=== PATIENT | female | born 1995 | race Caucasian/White ===

== ENCOUNTER 2020-12-09 10:37 | Outpatient (CLI) | payer OTHER, SELFPAY ==
--- NOTE | ~2020-12-09 | US_ITS ---
EXAMINATION: US pelvic complete DATE: 12/09/2020 11:15 INDICATION: Abnormal uterine bleeding TECHNIQUE: Multiple transabdominal sonographic images of the pelvis were obtained. COMPARISON: None. FINDINGS: The uterus measures 7.8 x 4 x 3.1 cm. The endometrial complex measures 16 mm. The right ova ry measures 3.1 x 2.1 x 1.7 cm. The left ovary measures 2.5 x 1.9 x 2.3 cm. There is normal vascular flow in the ovaries. There is no free fluid in the pelvis. IMPRESSION: 1. No sonographic correlate for the patient's symptoms. Reviewed, dictated and finalized at location [facility]. [facility]
[2020-12-09 11:26] LABS: Hematocrit 34.6 % (37.0-47.0); Hemoglobin 10.9 g/dL (12.0-15.0); Mean Corpuscular HGB Conc 31.5 g/dl (32-36); Mean Corpuscular Volume 85.6 fl (80-100); Mean Platelet Volume 10.2 fl (7.4-10.4); Platelet Count Result 323 k/mm3 (150-375); Red Blood Count 4.04 M/mm3 (4.2-5.4); Red Cell Distribution Width 14.9 % (11.5-14.5)
[2020-12-09 12:29] LABS: Free T4 Free Thyroxine 0.86 ng/mL (0.78-2.19)
[2020-12-14 06:14] LABS: Prolactin 13.7 ng/mL (***)
== END 2020-12-09 10:38 | disposition home or self-care (01) ==
PROVIDERS: PCP Internal Medicine; Visit Provider Obstetrics & Gynecology
DX: N93.9 Abnormal uterine and vaginal bleeding, unspecified (principal)
CPT/HCPCS: 36415; 76856; 84146; 84439; 84443; 85027

== ENCOUNTER 2023-03-05 14:30 | Outpatient (CLI) | payer OTHER, SELFPAY ==
[2023-03-05 19:28] LABS: Basophils Absolute Auto 0.1 K/mm3 (0.0-0.1); Basophils Percent Auto 0.9 % (0.2-1.2); Eosinophils Absolute Auto 0.1 K/mm3 (0-0.3); Eosinophils Percent Auto 0.9 % (0-4.4); Hematocrit 38.8 % (37.0-47.0); Hemoglobin 12.5 g/dL (12.0-15.0); Immature Granulocyte Absolute 0.01 K/mm3 (0.00-0.031); Immature Granulocyte Percent A 0.2 % (0-0.5); Lymphocytes Absolute Auto 2.14 K/mm3 (0.9-3.2); Lymphocytes Percent Auto 40.6 % (18.3-44.2); Mean Corpuscular HGB Conc 32.2 g/dl (32-36); Mean Corpuscular Hemoglobin 28.4 pg (26-34); Mean Corpuscular Volume 88.2 fl (80-100); Mean Platelet Volume 11.2 fl (7.4-10.4); Monocytes Absolute Auto 0.6 K/mm3 (0.1-0.6); Monocytes Percent Auto 10.8 % (2.6-8.5); Neutrophils Absolute Auto 2.5 K/mm3 (1.3-6.7); Neutrophils Percent Auto 46.6 % (45.5-73.1); Platelet Count Result 258 k/mm3 (150-375); Red Cell Distribution Width 12.8 % (11.5-14.5); White Blood Count 5.3 K/mm3 (4.5-10.0)
[2023-03-05 20:42] LABS: Alanine Aminotransferase 25 U/L (6-35); Albumin Level 4.2 g/dL (3.5-5.1); Alkaline Phosphatase 120 U/L (38-126); Anion Gap 7 mmol/L (8-16); Aspartate Amino Transferase 22 U/L (14-36); Bilirubin,Total 0.4 mg/dL (0.2-1.3); Blood Urea Nitrogen 7 mg/dL (7-17); Calcium 8.7 mg/dL (8.4-10.2); Carbon Dioxide 28 mmol/L (22-30); Chloride 100 mmol/L (98-107); Estimated Glomerular Filt Rate > 60; Glucose 85 mg/dL (65-110); Potassium 4.3 mmol/L (3.4-5.0); Sodium 135 mmol/L (137-145)
== END 2023-03-05 14:31 | disposition home or self-care (01) ==
LOC: ANHGOSHLAB 14:31
PROVIDERS: PCP Internal Medicine; Visit Provider Nurse Practitioner
DX: R00.2 Palpitations (principal)
CPT/HCPCS: 36415; 80053; 84443; 85025

== ENCOUNTER 2023-03-15 12:55 | Outpatient (CLI) | payer OTHER, SELFPAY ==
--- NOTE | 2023-03-21 12:38 | WPDHOLTEREM ---
Holter/Event Monitor Holter/Event Monitor Date of procedure: 03/15/23 Holter/Event Procedure: 48 Hr Holter Monitor Indications: Palpitations Conclusion: 1. 48 hour holter monitor on 03/15/23. 2. Predominant rhythm is sinus rhythm. HR range 43-156 bpm; average HR 84 bpm. HR at 156 bpm was at 14:48. 3. There are 2 premature supraventricular complexes. There is 1 episode of atrial tachycardia at 118 bpm lasting 4 beats at 04:23. 4. There is 1 premature ventricular complex. No ventricular tachycardia. 5. No sinoatrial or atrioventricular blocks. No significant pauses greater than 2 seconds. 6. Patient reports symptoms of chest pain and chest pressure/difficulty breathing which demonstrate sinus rhythm, HR range 67-117 bpm.
== END 2023-03-15 12:56 | disposition home or self-care (01) ==
LOC: ANHCARD 12:56
PROVIDERS: PCP Internal Medicine; Visit Provider Nurse Practitioner
DX: R00.2 Palpitations (principal)
CPT/HCPCS: 93225; 93226

== ENCOUNTER 2023-08-03 01:08 | Day surgery (SDC) | payer OTHER, SELFPAY ==
--- NOTE | 2023-07-24 16:13 | SUR.PREOP ---
Report to the Outpatient Waiting Room, entrance under the green pavilion located off [facility], at time 0600 on date 08/03/23. Planned Procedure Time: 0730. Time changes happen often and if your time is changed the preop area will call you the afternoon before. - You and your visitor will be asked to self-screen and do not enter if you have any COVID symptoms. - A mask is optional within the hospital at this time. Patients may have clear liquids (water, carbonated beverages, clear teas, apple juice) until 3 hours prior to surgery with a maximum of 20 ounces. - NO CLEAR LIQUIDS AFTER 0430 - No food from midnight until time of surgery - Infants may have breast milk until 4 hours before surgery, infant formula 6 hours prior to surgery. - Children will be allowed to drink immediately following surgery. If applicable, please bring a bottle or sippy cup to assist with drinking. Juice, water, soda, and popsicles are readily available. For infants on formula, please bring formula the day of surgery. Pacifiers are allowed. Take the following medications with a SIP of water the morning of surgery: N/A DO NOT STOP ANY OF YOUR OTHER PRESCRIPTION MEDICATIONS PRIOR TO SURGERY ?EXCEPT THE FOLLOWING Medications to discontinue per physician N/A Date to take last dose Please no make-up, nail cypriot, hairspray, perfume, deodorant, or body powder the day of surgery. No jewelry (including any body piercings) or valuables the day of surgery, leave them at home. Please take a shower or bath the night before, or the morning of, surgery with an antibacterial soap. Wear comfortable, loose fitting clothing. Children are encouraged to wear pajamas. - Jewelry must be removed prior to entering the operating room. Rings and piercings that are not removed may be cut off. - The hospital will not accept responsibility for valuables. - Please leave all valuables, including medications, at home the day of surgery. If you are going home after surgery, a licensed regional company truck driver must drive you home. - NO public transportation without another adult if you receive anesthesia. - We recommend that an adult stay with you for 24 hours following discharge. - We also recommend that you do not drive, make important decision, drink alcoholic beverages, or take any drugs that were not prescribed by your health care provider for at least 24 hours after your discharge time. For Pediatric surgeries, we recommend two adults accompany the child home. Follow any additional instructions given to you from your surgeon. If you or anyone in your household have experienced Covid symptoms in the past week, please notify your surgeon or the nurse liaison at the phone number below for possible testing. Telephone instructions given to DILIP AGUERO and asked if any additional questions and then verbalized understanding. Patient advised to call surgeon office or pre surgery nurse liaison [phone] if any additional questions.
[2023-07-24 16:52] VITALS: BMI 39.4
[2023-08-03 06:06] VITALS: BP 151/92; PULSE 81; RESP 16; TEMP 36.6; O2SAT 99
[2023-08-03] MEDS: LACTATED RINGERS 1,000 ML 30 ML IV CONT (06:35)
[2023-08-03] MEDS: ACETAMINOPHEN 500 MG TABLET 1000 MG PO (06:36)
--- NOTE | 2023-08-03 07:11 | PM.IMHP ---
H&P: HPI History of Present Illness Date/Time: 08/03/23 07:11 Chief Complaint: Heavy periods Narrative: Patient with long history of menorrhagia not satisfactorily improved with oral contraceptive pills. She does not want to have to take any hormones declines all other options for menorrhagia treatment. She opted for endometrial ablation. No desire for children. Does not need control. She had normal endometrial biopsy. Review of Systems Review of Systems: All systems reviewed & are unremarkable except as noted in HPI and below Cardiovascular: Cardiovascular: Reports no additional cardiovascular complaints, Denies chest pain and Denies dyspnea Respiratory: Respiratory: Reports no additional respiratory complaints and Denies dyspnea Gastrointestinal: Gastrointestinal: Reports abdominal pain, Denies change in bowel habits, Denies diarrhea, Denies nausea and Denies vomiting Genitourinary: Genitourinary: Reports pelvic pain Musculoskeletal: Musculoskeletal: Reports back pain Integumentary/Breasts: Skin/Breast: Reports system reviewed and no additional complaints, except as docu Neurologic: Reports system reviewed and no additional complaints, except as documented [facility] Past Medical History Medical History Anxiety Depression GERD (gastroesophageal reflux disease) Migraines Sleep apnea Surgical History Surgical History History of foot surgery left foot calcium injection 2017 History of foot surgery left foot calcaneal osteotomy 2018 Family History Family History Mother Hypertension Degenerative disc disease Father Hypertension GERD (gastroesophageal reflux disease) Grandparent Diabetes mellitus Hypertension Cerebrovascular accident COPD (chronic obstructive pulmonary disease) Lung cancer Social History Social History Smoking status: Never smoker Alcohol intake: current Substance use: never Lack of Transportation: No Lack of Food: Never True Current Housing: I Have Housing Concerned About Future Housing: No Difficulty Paying Gas/Electric Bills: No Difficulty Paying for Meds: No Currently Unemployed: YES Education: Bachelor's Degree Difficulty w/ Childcare or Family Care: No Occupation/Education: unemployed Gender identity (if verbalized by the patient): Female Sexual Orientation (if Verbalized by the Patient): Lesbian, Hameed, or Homosexual Spiritual care concerns: No Meds Home Medications and Allergies Home Medications Medication Instructions Recorded Confirmed Type clonidine HCl 0.1 mg tablet 0.1 mg PO DAILY 01/25/23 07/24/23 History omeprazole 20 mg capsule,delayed 20 mg PO DAILY 01/25/23 07/24/23 History release norethindrone 1 mg-ethinyl 1 tablet PO DAILY #84 tabs 03/14/23 07/24/23 Rx estradiol 20 mcg (21)-iron 75 mg (7) tablet (Loestrin Fe 12/15 (28-Day)) lisdexamfetamine 20 mg capsule 40 mg PO DAILY 06/15/23 07/24/23 History (Vyvanse) Allergies Allergy/AdvReac Type Severity Reaction Status Date / Time No Known Allergies Allergy Verified 07/24/23 16:52 Vital Signs Vital Signs - 24 hr 08/03/23 06:06 Temperature 97.8 F Pulse Rate 81 Respiratory Rate 16 Blood Pressure 151/92 H Pulse Oximetry 99 Oxygen Delivery Room Air Exam Const: Orientation/consciousness: oriented to person and oriented to place HENMT: Head: normal to inspection Eyes: General: appearance normal, both eyes and all related structures Resp: Effort & Inspection: normal respiratory effort Auscultation: clear to auscultation bilaterally Cardio: Rate: regular rate Rhythm: regular rhythm GI: Inspection: normal to inspection GI Palp: No Rebound tenderness present Neuro: General: oriented to person and oriented t
--- NOTE | 2023-08-03 07:15 | WPDHPUPDATE1 ---
History and Physical Update Update Date/Time: 08/03/23 07:15 History and Physical has been reviewed, including an updated exam of the patient. There are NO changes in the patient's condition. Risks, benefits, and alternatives have been discussed and questions answered. Patient agrees to proceed with procedure.
--- NOTE | 2023-08-03 07:17 | WPDANESEPPF ---
Anes - Initial Pre Proc Eval Procedure: Operation Date: 08/03/23 07:30 Proposed Procedures p Hysteroscopy Dilation and Curettage with Amanda Endometrial Ablation - Piter Marrufo MD Date/Time: 08/03/23 07:17 Surgeon: Piter Marrufo MD Pre Op Diagnosis: menorrhagia Patient Data Age: 28 Gender: F Height: 1.6 m Weight: 101.2 kg Last Vital Signs Temp 36.6 C 08/03/23 06:06 Pulse 81 08/03/23 06:06 Resp 16 08/03/23 06:06 BP 151/92 H 08/03/23 06:06 Pulse Ox 99 08/03/23 06:06 O2 Del Method Room Air 08/03/23 06:06 Allergies Allergy/AdvReac Type Severity Reaction Status Date / Time No Known Allergies Allergy Verified 07/24/23 16:52 Home Medications Medication Instructions Recorded Confirmed Type clonidine HCl 0.1 mg tablet 0.1 mg PO DAILY 01/25/23 07/24/23 History omeprazole 20 mg capsule,delayed 20 mg PO DAILY 01/25/23 07/24/23 History release norethindrone 1 mg-ethinyl 1 tablet PO DAILY #84 tabs 03/14/23 07/24/23 Rx estradiol 20 mcg (21)-iron 75 mg (7) tablet (Loestrin Fe / (28-Day)) lisdexamfetamine 20 mg capsule 40 mg PO DAILY 06/15/23 07/24/23 History (Vyvanse) Patient hx anesthesia problems: none Family hx anesthesia problems: none Results Review: All pre-operative results and documents have been reviewed as part of the pre-operative evaluation. [facility] Past Medical History Medical History Anxiety Depression GERD (gastroesophageal reflux disease) Migraines Sleep apnea Surgical History Surgical History History of foot surgery left foot calcium injection 2017 History of foot surgery left foot calcaneal osteotomy 2018 Family History Family History Mother Hypertension Degenerative disc disease Father Hypertension GERD (gastroesophageal reflux disease) Grandparent Diabetes mellitus Hypertension Cerebrovascular accident COPD (chronic obstructive pulmonary disease) Lung cancer Social History Social History Smoking status: Never smoker Alcohol intake: current Substance use: never Lack of Transportation: No Lack of Food: Never True Current Housing: I Have Housing Concerned About Future Housing: No Difficulty Paying Gas/Electric Bills: No Difficulty Paying for Meds: No Currently Unemployed: YES Education: Bachelor's Degree Difficulty w/ Childcare or Family Care: No Occupation/Education: unemployed Gender identity (if verbalized by the patient): Female Sexual Orientation (if Verbalized by the Patient): Lesbian, Hameed, or Homosexual Spiritual care concerns: No Anes - Eval Final PreProcedure Day of Procedure 08/03/23 07:17 Patient weight: morbidly obese Heart: regular rate and rhythm Lungs: clear to auscultation Airway: Mallampati scale class II Neurological: alert and oriented Last oral intake: >/= 8 hours ASA classification: III Emergent: no Anesthetic plan: proceed Anesthesia type and monitoring: general GIVS and standard monitoring Results Review: All pre-operative results and documents have been reviewed as part of the pre-operative evaluation. Informed Consent: The patient's anesthetic plan and its attendant risks and benefits were discussed with the patient/family/POA. Questions were solicited and answers provided to the satisfaction of the patient/family/POA.
[2023-08-03 08:02] VITALS: BP 111/46; PULSE 75; RESP 16; O2SAT 100
--- NOTE | 2023-08-03 08:03 | W.PM.PROC2 ---
Procedure Note - Detailed Date of Procedure 08/03/23 Pre-op Diagnosis menorrhagia Post-op Diagnosis Same Procedure Performed Diagnostic hysteroscopy. Attempted Amanda endometrial ablation. Surgeon Piter Marrufo MD Anesthesia MAC and Local Indications Menorrhagia Findings Uterus sound to 7 cervical length 3, uterine length 4 cm, uterine cavity normal, the cavity did appear narrow, the Amanda arms would not deploy, small indention in the fundus, no full perforation. Description of Procedure After informed consent was obtained patient was taken to the operating room and adequate IV sedation was administered. She was placed in low lithotomy position and prepped and draped in sterile fashion. Attention was turned to the vagina speculum inserted. Single-tooth tenaculum placed on anterior lip of the cervix 10 cc of 1% lidocaine was injected at the cervical vaginal interface at the 258 and 10 position. The uterus was sounded to 7 cm. The of either hysteroscope was inserted using hydrodilation the hysteroscope was inserted into the uterine cavity. There were no abnormalities noted with the cavity. The cavity did appear somewhat narrow. The hysteroscope was removed. The cervix was dilated to an 8 Babcock dilator. The Amanda instrument was inserted into the cavity. When the arms were deployed it would not go into the green this was attempted twice still it would not go into the green. Therefore could not proceed with the ablation. The hysteroscope was then reinserted and the cavity was assessed there is noted to be an area of superficial indention of the myometrium near the fundal area which looked like from the arms of the Amanda. It did not perforate through the uterus. A curettage was then performed minimal tissue obtained. Fluid discrepancy 40 cc. The speculum was removed hemostasis was noted at the tenaculum site and at the cervix. Sponge count correct. Patient tolerated procedure well. Estimated Blood Loss 5 Drains No Packing No Pathology Yes (Endometrial curetting) Complications No immediate complications Condition Stable Disposition Same day [facility] Billing Surgery - Charge Forward: Surgery Billing
[2023-08-03] MEDS: KETOROLAC 30 MG/ML VIAL (*BKC) IV PUSH (08:11)
[2023-08-03] MEDS: fentaNYL CITRATE INJ (*CRX) 100 MCG/2 ML VIAL 25 MCG IV PUSH (08:21)
[2023-08-03 08:30] VITALS: BP 143/83; PULSE 66; RESP 20
[2023-08-03 09:00] VITALS: BP 143/79; PULSE 66; RESP 20
[2023-08-03] MEDS: oxyCODONE HCL (*CRX) 5 MG TAB IR PO (09:01)
--- NOTE | 2023-08-03 09:01 | SUR.PHASEII ---
0900 - dr. bynum in room talking with pt and pt's family
[2023-08-03 09:20] VITALS: BP 140/80; PULSE 60; RESP 20
== END 2023-08-03 09:20 | disposition home or self-care (01) ==
PROVIDERS: PCP Internal Medicine; Visit Provider Obstetrics & Gynecology
PROC: 0U5B8ZZ Destruction of Endometrium, Via Natural or Artificial Opening Endoscopic (ICD-10-PCS; CPT 58563; principal; 2023-08-03 07:30)
DX: N92.1 Excessive and frequent menstruation with irregular cycle (principal); K21.9 Gastro-esophageal reflux disease without esophagitis; F32.A Depression, unspecified; F41.9 Anxiety disorder, unspecified; G47.30 Sleep apnea, unspecified; E66.01 Morbid (severe) obesity due to excess calories; Z68.39 Body mass index [BMI] 39.0-39.9, adult
CPT/HCPCS: 58563; 88305; A9270; J1885; J2250; J2704; J3010; J7120

== ENCOUNTER 2023-09-10 14:18 | Outpatient (CLI) | payer OTHER, SELFPAY | END 2023-09-10 14:19 | disposition home or self-care (01) | LOC: ANHSURGERY 14:21 | PROVIDERS: PCP Internal Medicine; Visit Provider Obstetrics & Gynecology | DX: Z01.818 Encounter for other preprocedural examination (principal); N92.0 Excessive and frequent menstruation with regular cycle | CPT/HCPCS: 36415; 86850; 86900; 86901 ==

== ENCOUNTER 2023-09-14 00:20 | Day surgery (SDC) | payer OTHER, SELFPAY ==
[2023-09-03 10:44] VITALS: BMI 38.0
--- NOTE | 2023-09-03 10:50 | SUR.PREOP ---
Report to the Outpatient Waiting Room, entrance under the green pavilion located off [facility], at time _0600_ on date 09/14/23. Planned Procedure Time: _0730_. Time changes happen often and if your time is changed the preop area will call you the afternoon before. - You and your visitor will be asked to self-screen and do not enter if you have any COVID symptoms. - A mask is optional within the hospital at this time. Patients may have clear liquids (water, carbonated beverages, clear teas, apple juice) until 3 hours prior to surgery with a maximum of 20 ounces. - No food from midnight until time of surgery BEFORE 0430AM - Infants may have breast milk until 4 hours before surgery, infant formula 6 hours prior to surgery. - Children will be allowed to drink immediately following surgery. If applicable, please bring a bottle or sippy cup to assist with drinking. Juice, water, soda, and popsicles are readily available. For infants on formula, please bring formula the day of surgery. Pacifiers are allowed. Take the following medications with a SIP of water the morning of surgery: ___HOLD MORNING MEDS____ DO NOT STOP ANY OF YOUR OTHER PRESCRIPTION MEDICATIONS PRIOR TO SURGERY ?EXCEPT THE FOLLOWING Medications to discontinue per physician ____HOLD MORNING MEDS Date to take last dose Please no make-up, nail croatian, hairspray, perfume, deodorant, or body powder the day of surgery. No jewelry (including any body piercings) or valuables the day of surgery, leave them at home. Please take a shower or bath the night before, or the morning of, surgery with an antibacterial soap. Wear comfortable, loose fitting clothing. Children are encouraged to wear pajamas. - Jewelry must be removed prior to entering the operating room. Rings and piercings that are not removed may be cut off. - The hospital will not accept responsibility for valuables. - Please leave all valuables, including medications, at home the day of surgery. If you are going home after surgery, a licensed patient transportation driver must drive you home. - NO public transportation without another adult if you receive anesthesia. - We recommend that an adult stay with you for 24 hours following discharge. - We also recommend that you do not drive, make important decision, drink alcoholic beverages, or take any drugs that were not prescribed by your health care provider for at least 24 hours after your discharge time. For Pediatric surgeries, we recommend two adults accompany the child home. Follow any additional instructions given to you from your surgeon. If you or anyone in your household have experienced Covid symptoms in the past week, please notify your surgeon or the nurse liaison at the phone number below for possible testing. Telephone instructions given to __PATIENT___and asked if any additional questions and then verbalized understanding. Patient advised to call surgeon office or pre surgery nurse liaison [phone] if any additional questions.
--- NOTE | 2023-09-13 17:10 | PM.IMHP ---
H&P: HPI History of Present Illness Date/Time: 09/13/23 17:10 Chief Complaint: Irregular and heavy periods Narrative: She is a 28 y/o G0 with long history of irregular and heavy periods. She has been tried on hormonal options which has improved symptoms but not resolved satisfactorily. She does not want to use or take any hormonal options to resolve her symptoms. She had requested hysterectomy in the past but she was recommended to try endometrial ablation first. She had normal endometrial tissue. The ablation device would not enable and therefore unable to perform the ablation. She continues to decline other hormonal options for her symptoms and request definitive treatment with hysterectomy. She states she has never wanted to get and knows she would not be able carry a with the hysterectomy, which she satisfied with this. Review of Systems Review of Systems: All systems reviewed & are unremarkable except as noted in HPI and below Cardiovascular: Cardiovascular: Reports no additional cardiovascular complaints, Denies chest pain and Denies dyspnea Respiratory: Respiratory: Reports no additional respiratory complaints and Denies dyspnea Gastrointestinal: Gastrointestinal: Reports abdominal pain, Denies change in bowel habits, Denies diarrhea, Denies nausea and Denies vomiting Genitourinary: Genitourinary: Reports pelvic pain Musculoskeletal: Musculoskeletal: Reports back pain Integumentary/Breasts: Skin/Breast: Reports system reviewed and no additional complaints, except as docu Neurologic: Reports system reviewed and no additional complaints, except as documented [facility] Past Medical History Medical History Anxiety Depression GERD (gastroesophageal reflux disease) Menometrorrhagia Migraines Sleep apnea Surgical History Surgical History History of foot surgery left foot calcium injection 2017 History of foot surgery left foot calcaneal osteotomy 2018 History of hysteroscopy (~08/03/23) Attempted endometrial ablation. Menometrorrhagia Family History Family History Mother Hypertension Degenerative disc disease Father Hypertension GERD (gastroesophageal reflux disease) Grandparent Diabetes mellitus Hypertension Cerebrovascular accident COPD (chronic obstructive pulmonary disease) Lung cancer Social History Social History Smoking status: Never smoker Alcohol intake: current Substance use: never Lack of Transportation: No Lack of Food: Never True Current Housing: I Have Housing Concerned About Future Housing: No Difficulty Paying Gas/Electric Bills: No Difficulty Paying for Meds: No Currently Unemployed: YES Education: Bachelor's Degree Difficulty w/ Childcare or Family Care: No Living arrangements: with family Occupation/Education: unemployed Gender identity (if verbalized by the patient): Other Sexual Orientation (if Verbalized by the Patient): Lesbian, Hameed, or Homosexual Spiritual care concerns: No Meds Home Medications and Allergies Home Medications Medication Instructions Recorded Confirmed Type clonidine HCl 0.1 mg tablet 0.1 mg PO DAILY 01/25/23 09/03/23 History omeprazole 20 mg capsule,delayed 20 mg PO DAILY 01/25/23 09/03/23 History release norethindrone 1 mg-ethinyl 1 tablet PO DAILY #84 tabs 03/14/23 09/03/23 Rx estradiol 20 mcg (21)-iron 75 mg (7) tablet (Loestrin Fe 12/15 (28-Day)) lisdexamfetamine 20 mg capsule 40 mg PO DAILY 06/15/23 09/03/23 History (Vyvanse) scopolamine base 1 mg over 3 days 1 patch transdermal ONCE #1 ea 08/29/23 09/03/23 Rx transdermal patch Allergies Allergy/AdvReac Type Severity Reaction Status Date / Time No Known Allergies Allergy Verified 08/29/23 09:
[2023-09-14] VITALS (17 sets, daily range): BP systolic 108–149; BP diastolic 65–80; PULSE 43–78; RESP 12–20; TEMP 36.4–36.6; O2SAT 99–100
[2023-09-14] MEDS: LACTATED RINGERS 1,000 ML 30 ML IV CONT ×2 (06:45→09:17)
[2023-09-14] MEDS: ACETAMINOPHEN 500 MG TABLET 1000 MG PO (06:49)
[2023-09-14] MEDS: KETOROLAC 15 MG/ML VIAL (*BKC) IV PUSH (06:49)
--- NOTE | 2023-09-14 06:53 | WPDANESEPPF ---
Anes - Initial Pre Proc Eval Procedure: Operation Date: 09/14/23 07:30 Proposed Procedures p Robotic Laparoscopic Assisted Vaginal Total Hysterectomy with Bilateral Salpingectomy - Piter Marrufo MD Date/Time: 09/14/23 06:53 Surgeon: Piter Marrufo MD Pre Op Diagnosis: menorrhagia Patient Data Age: 28 Gender: F Height: 1.6 m Weight: 97.52 kg Allergies Allergy/AdvReac Type Severity Reaction Status Date / Time No Known Allergies Allergy Verified 08/29/23 09:48 Home Medications Medication Instructions Recorded Confirmed Type clonidine HCl 0.1 mg tablet 0.1 mg PO DAILY 01/25/23 09/03/23 History omeprazole 20 mg capsule,delayed 20 mg PO DAILY 01/25/23 09/03/23 History release norethindrone 1 mg-ethinyl 1 tablet PO DAILY #84 tabs 03/14/23 09/03/23 Rx estradiol 20 mcg (21)-iron 75 mg (7) tablet (Loestrin Fe 12/15 (28-Day)) lisdexamfetamine 20 mg capsule 40 mg PO DAILY 06/15/23 09/03/23 History (Vyvanse) scopolamine base 1 mg over 3 days 1 patch transdermal ONCE #1 ea 08/29/23 09/03/23 Rx transdermal patch Patient hx anesthesia problems: none Family hx anesthesia problems: none Results Review: All pre-operative results and documents have been reviewed as part of the pre-operative evaluation. [facility] Past Medical History Medical History Anxiety Depression GERD (gastroesophageal reflux disease) Menometrorrhagia Migraines Sleep apnea Surgical History Surgical History History of foot surgery left foot calcium injection 2017 History of foot surgery left foot calcaneal osteotomy 2018 History of hysteroscopy (~08/03/23) Attempted endometrial ablation. Menometrorrhagia Family History Family History Mother Hypertension Degenerative disc disease Father Hypertension GERD (gastroesophageal reflux disease) Grandparent Diabetes mellitus Hypertension Cerebrovascular accident COPD (chronic obstructive pulmonary disease) Lung cancer Social History Social History Smoking status: Never smoker Alcohol intake: current Substance use: never Lack of Transportation: No Lack of Food: Never True Current Housing: I Have Housing Concerned About Future Housing: No Difficulty Paying Gas/Electric Bills: No Difficulty Paying for Meds: No Currently Unemployed: YES Education: Bachelor's Degree Difficulty w/ Childcare or Family Care: No Living arrangements: with family Occupation/Education: unemployed Gender identity (if verbalized by the patient): Other Sexual Orientation (if Verbalized by the Patient): Lesbian, Hameed, or Homosexual Spiritual care concerns: No Anes - Eval Final PreProcedure Day of Procedure 09/14/23 06:53 Patient weight: obese Heart: regular rate and rhythm Lungs: clear to auscultation Airway: Mallampati scale class II Neurological: alert and oriented Last oral intake: >/= 8 hours ASA classification: III Emergent: no Anesthetic plan: proceed Anesthesia type and monitoring: general ETT and standard monitoring Results Review: All pre-operative results and documents have been reviewed as part of the pre-operative evaluation. Informed Consent: The patient's anesthetic plan and its attendant risks and benefits were discussed with the patient/family/POA. Questions were solicited and answers provided to the satisfaction of the patient/family/POA.
--- NOTE | 2023-09-14 07:16 | WPDHPUPDATE1 ---
History and Physical Update Update Date/Time: 09/14/23 07:16 History and Physical has been reviewed, including an updated exam of the patient. There are NO changes in the patient's condition. Risks, benefits, and alternatives have been discussed and questions answered. Patient agrees to proceed with procedure.
[2023-09-14] MEDS: ceFAZolin 2 GM/D5W 50 ML 2 GM/50 ML BAG IVPB (07:29)
[2023-09-14] MEDS: BUPivacaine HCL 0.5% PF 30 ML VIAL INFILTRATE (07:53)
--- NOTE | 2023-09-14 09:07 | PM.OP ---
Procedure Note - Brief Procedure Note - Brief Date of procedure: 09/14/23 menorrhagia Post-op diagnosis: Same Procedure performed: rotic assisted laparoscopic total hysterectomy with bilateral salpingectomy Surgeon: Piter Marrufo MD Anesthesia: GETA Findings: normal uterus fallopian tubes and ovaries a few adhesions of left fallopian tube to perintestinal fat Estimated blood loss (mL): 25 IV fluids (mL): 1,000 Urine output (mL): 250 Packing: No Pathology: Yes (uterus with cervix and fallopian tubes bilaterally) Complications: No immediate complications Condition: Stable Disposition: PACU
[2023-09-14] MEDS: fentaNYL CITRATE INJ (*CRX) 100 MCG/2 ML VIAL 25 MCG IV PUSH ×5 (10:04→12:15)
--- NOTE | 2023-09-14 11:17 | SUR.PHASEI ---
1045: Patient meets PACU discharge criteria, unit bed unavailable at this time. Patient placed in extended recovery status.
[2023-09-14] MEDS: oxyCODONE HCL (*CRX) 5 MG TAB IR PO (11:20)
--- NOTE | 2023-09-14 14:40 | PC.NURSE ---
This patient, Nona Matos, was received from PACU on 09/14/23 at 1440. Patient/family oriented to unit policies and routines.
[2023-09-14] MEDS: IBUPROFEN 600 MG TABLET PO (17:05)
[2023-09-14] MEDS: HYDROcodone/acetaminophen (*CRX) 5-325 MG TABLET 1 TAB PO (17:06)
[2023-09-15 04:45] VITALS: BP 136/68; PULSE 42; RESP 16; TEMP 36.7
[2023-09-15] MEDS: HYDROcodone/acetaminophen (*CRX) 5-325 MG TABLET 1 TAB PO ×3 (04:48→11:52)
[2023-09-15] MEDS: IBUPROFEN 600 MG TABLET PO ×2 (04:48→11:52)
[2023-09-15 07:35] VITALS: BP 131/70; PULSE 44; RESP 16; TEMP 36.8; O2SAT 100
[2023-09-15] MEDS: PANTOPRAZOLE 40 MG TABLET PO (08:32)
--- NOTE | 2023-09-15 12:20 | PM.GYNPNOP ---
PROFESSIONAL ORGANIZER - A/P Assessment and plan (1) H/O: hysterectomy: Code(s): Z90.710 - Acquired absence of both cervix and uterus Status: Acute Assessment and Plan: Postop day 1 status post robotic hysterectomy. She is doing well. Will discharge home today. Discharge precautions discussed. Postoperative Procedures: Procedures Operation Date: 09/14/23 07:30 Actual Procedure Side Surgeon p Robotic Laparoscopic Assisted Total Vaginal Hysterectomy with Bilateral Salpingectomy Bilateral Piter Marrufo MD Time Spent With Patient Time: Total time spent is greater than 50% in coordination of care (as documented) at patient's floor/unit and/or counseling patient: Time with patient: less than 15 minutes PROFESSIONAL ORGANIZER- PN:Subj Post-Op Subjective Date/time seen: 09/15/23 12:20 Interval history: Discussed her surgery with her. She states adequate pain control with medications. She is tolerating regular food she has ambulated no problems. Exam Const: General: comfortable Eyes: General: appearance normal, both eyes and all related structures Resp: Effort & Inspection: normal respiratory effort GI: Other: Soft nontender incisions healing well Extrem: General: normal to inspection and no calf tenderness PROFESSIONAL ORGANIZER - PN: Obj Data Vital Signs Vital Signs: Vital Signs - 24 hr 09/14/23 12:45 09/14/23 13:15 09/14/23 13:45 Temperature Pulse Rate 46 L 55 L 54 L Respiratory Rate 14 16 16 Blood Pressure 126/80 136/68 125/67 Pulse Oximetry Oxygen Delivery 09/14/23 14:15 09/14/23 14:45 09/14/23 19:15 Temperature 97.6 F 97.8 F Pulse Rate 45 L 46 L 46 L Respiratory Rate 16 20 16 Blood Pressure 128/67 131/70 126/65 Pulse Oximetry 100 Oxygen Delivery 09/15/23 04:45 09/15/23 07:35 09/15/23 07:35 Temperature 98.1 F 98.3 F Pulse Rate 42 L 44 L Respiratory Rate 16 16 Blood Pressure 136/68 131/70 Pulse Oximetry 100 Oxygen Delivery Room Air Intake/Output Intake/Output: Intake & Output 09/12/23 09/13/23 09/14/23 09/15/23 23:59 23:59 23:59 23:59 Intake Total 750 Output Total 250 Balance 500 Meds/Results Medications: Active Medications Generic Name Dose Route Start Last Admin Trade Name Freq PRN Reason Stop Dose Admin Hydrocodone Bitart/Acetaminophen 1 tab 09/14/23 09:04 09/15/23 11:52 Hydrocodone/Acetaminophen (*Crx) 5-325 Mg Tablet PO 1 tab Q3H PRN Administration Pain Rated 5 or Less Hydrocodone Bitart/Acetaminophen 1 tab 09/14/23 09:04 Hydrocodone/Acetaminophen (*Crx) 10-325 Mg Tablet PO Q3H PRN Pain Rated 6 or Greater Clonidine HCl 0.1 mg 09/15/23 09:00 09/15/23 08:33 Clonidine Hcl 0.1 Mg Tablet PO Not Given DAILY SALMA Ibuprofen 600 mg 09/14/23 09:04 09/15/23 11:52 Ibuprofen 600 Mg Tablet PO 600 mg Q6H PRN Administration Cramping Miscellaneous Information 0 each 09/14/23 00:01 Med Rec Order Clarification XX 10/14/23 00:00 CLARIFY SALMA Non-Formulary Medication 40 mg 09/15/23 09:00 Lisdexamfetamine [Vyvanse] PO 10/15/23 08:59 DAILY SALMA Pantoprazole Sodium 40 mg 09/15/23 09:00 09/15/23 08:32 Pantoprazole 40 Mg Tablet PO 40 mg QAM SALMA Administration
--- NOTE | 2023-09-15 12:23 | PM.DS ---
DS: Admitting Diagnosis Discharge Date September 15 Admitting Diagnosis Menorrhagia DS: Discharge Diagnosis Discharge Diagnosis (1) Menorrhagia: Code(s): N92.0 - Excessive and frequent menstruation with regular cycle Status: Acute DS: Summary Hospital Course Reason for hospitalization: Planned robotic hysterectomy. Hospital Course: Patient was admitted on 09/14/2023 for planned laparoscopic robotic assisted hysterectomy and bilateral salpingectomy. She had an uncomplicated procedure. Postop she did well. Had adequate pain control. Was ambulating well and urinating well and tolerating regular food. Was discharged home on postop day 1. Discharge precautions discussed. Status at Discharge Functional status at discharge: independent ambulation Overall status at discharge: patient is progressing back to baseline Time Spent with Patient Time attestation: Total time spent providing and/or coordinating discharge services: Exam Const: General: comfortable and no acute distress Eyes: General: appearance normal, both eyes and all related structures Resp: Effort & Inspection: normal respiratory effort GI: Other: Incisions intact and healing nontender Extrem: General: normal to inspection and no calf tenderness DS: Data Data Completed and Pending Pending studies at discharge: Pending at discharge 09/14/23 08:50 Surgical [PTH] Routine Procedures/Treatments: Laparoscopic-assisted robotic vaginal hysterectomy with bilateral salpingectomy Discharge Plan Discharge Patient Disposition: Home, Self-Care Discharge Instructions: Remove the Scopolamine patch that was placed behind your ear in 72 hours or less. Wash your hands after touching. Patient Instructions: Hysterectomy (DC) Stand Alone Forms: General Discharge Instructions Discharge Medications: New hydrocodone-acetaminophen 5-325 mg Tablet 1 tablet PO Q3H PRN (Reason: Pain Rated 5 Or n) Qty: 20 0RF No Action clonidine HCl 0.1 mg tablet 0.1 mg PO DAILY omeprazole 20 mg capsule,delayed release(DR/EC) 20 mg PO DAILY Vyvanse 20 mg capsule 40 mg PO DAILY norethindrone-e.estradiol-iron [Loestrin Fe 12/15 (28-Day)] 1 mg-20 mcg (21)/75 mg (7) tablet 1 tablet PO DAILY Qty: 84 3RF
--- NOTE | 2023-09-26 09:02 | W.PM.PROC2 ---
Procedure Note - Detailed Date of Procedure 09/26/23 Pre-op Diagnosis menorrhagia Post-op Diagnosis Same Procedure Performed Robotic assisted vaginal hysterectomy and bilateral salpingectomy Surgeon Piter Marrufo MD Supervisor Cr[employer] Enio Anesthesia General Indications Patient with long history of menometrorrhagia had a prior attempted endometrial ablation but the apparatus would not enable therefore unable to perform that procedure. She does not want to to do any type of hormonal, IUD options and she has previously and continues to request definitive treatment with hysterectomy. Findings Normal uterus normal fallopian tubes normal-appearing ovaries. Description of Procedure After informed consent was obtained she was taken to the operating room and general endotracheal anesthesia was administered. She was placed in low lithotomy position. An exam under anesthesia was performed. Uterus palpated normal size. No adnexal masses palpated. She was and prepped and draped in sterile fashion. Carlson catheter placed in bladder. Attention was turned to the vagina speculum was inserted. Single-tooth tenaculum placed on anterior lip of the cervix the uterus sounded to 7 cm. The cervix was dilated to a 8 Babcock dilator. A size 6 uterine manipulator was inserted and secured. A size 3.0 colp cup was secured in the vagina. Then attention was turned to the abdomen with new sterile gloves. .25% marcaine injected subcutaneously. An incision was made horizontal 2 cm above the umbilicus. With the abdominal tissue tented upward a Veress needle was inserted. Confirmation into the abdomen obtained with normal free flow of fluid and normal peritoneal pressures. A pneumoperitoneum of 15 mm per mercury was obtained. 8 mm robotic port was inserted under laparoscopic visualization. No adhesions were noted in the abdomen. A small incision was made approximately 6 cm lateral to the port on the left side A size 8mm robotic port was inserted under laparoscopic visualization into the abdomen on the left side. Attention was turned to the right side of the abdomen and Marcaine was injected subcutaneously an 8 mm robotic port was inserted under laparoscopic visualization. Superior and medial to this Marcaine was also injected and the 10 mm certified ophthalmic surgical assistant port was inserted under laparoscopic visualization. Patient was placed in Trendelenburg position to allow the intestinal tissue to come up out of the pelvis. The robotic arms were then attached to the ports. Attention was turned to the surgery console. Attention was turned to the right round ligament which was ligated with the vessel sealer. The anterior leaf of the broad ligament was dissected anteriorly.The right side of the bladder was dissected from the lower uterine segment and upper cervix. The right fallopian tube was ligated with the vessel sealer from the broad ligament. The right ovarian ligament was ligated with the vessel sealer. The a posterior leaf of the broad ligament was further dissected. The ascending uterine vessels were ligated. The uterine vessels were ligated. Attention was turned to the left round ligament which was ligated and the anterior leaf of the broad ligament was dissected anteriorly. The rest of the vesicouterine peritoneum was dissected off of the uterus. Once the bladder was dissected below the colp cup then left fallopian tube was ligated from the broad ligament. The posterior leaf of the broad ligament was further dissected. The ovarian ligament was ligated. The ascending uterine vessels were ligated. The ascending uterine vessels were ligated. The uterine arteries were ligated. The cardinal ligaments were ligated. This was done on both sides. An incision was made anterior colpotomy incision was made and this was carried around until the cervix was removed from the vagina. The uterus and cervix were removed through the vagina. The vaginal cuff was closed in a running fashion with 0 V l
== END 2023-09-15 12:45 | disposition home or self-care (01) ==
LOC: ANHSURGERY 07:05 → ANHOB2 14:42
PROVIDERS: PCP Internal Medicine; Visit Provider Obstetrics & Gynecology
PROC: (CPT 58571; principal; 2023-09-14 07:30)
DX: N92.0 Excessive and frequent menstruation with regular cycle (principal); F41.9 Anxiety disorder, unspecified; F32.A Depression, unspecified; K21.9 Gastro-esophageal reflux disease without esophagitis; G47.30 Sleep apnea, unspecified; E66.9 Obesity, unspecified; Z68.39 Body mass index [BMI] 39.0-39.9, adult
CPT/HCPCS: 58571; S2900; 88307; 99199; A9270; J0690; J1100; J1170; J1885; J2250; J2405; J2704; J3010; J7030; J7120

== ENCOUNTER 2024-02-15 08:27 | Outpatient (CLI) | payer OTHER, SELFPAY ==
--- NOTE | 2024-02-27 12:41 | WPDHOMESLEEP ---
Sleep Study - Home Unattended Date of Study: 02/15/24 Ordering Provider: Jana Berrios NP Interpreting Provider: Sherrie Gilbert, DO Home Sleep Study Type: Watch PAT Height: 1.6 m Weight: 92.986 kg Body Mass Index: 36.3 Neck Circumference (inches): 14 [place]: 7 Reason for Sleep Study Loud snoring, unrefreshing sleep Sleep History The patient is a 28-year-old female with ADHD and GERD that had a sleep study ordered by her primary care for evaluation sleep apnea. She occasionally awakens from sleep short of breath. She occasionally awakens at night with heartburn, belching or cough. She frequently snores and it is frequently loud enough that others complain. She frequently has trouble sleeping when she has a cold. She occasionally wakes up gasping for air throughout the night. She occasionally has breathing problems at night observed by herself or others. She occasionally sweats excessively at night. She occasionally has heart palpitations or irregular heartbeats during. She rarely falls asleep during the day but never while driving. She denies cataplexy. She occasionally has trouble at school or work due to sleepiness. She occasionally feels unable to move while waking up or falling asleep. Occasionally experiences vivid dreamlike scenes upon awakening or asleep. She denies feeling afraid of going to sleep. She occasionally has nightmares and occasionally remembers her dreams. She frequently has thoughts racing through her mind. She occasionally feels sad, depressed and anxious. She occasionally has muscular tension. She occasionally notices parts of her body jerk. She rarely kicks during night. She rarely has crawling and aching feelings in legs rarely has leg pain during the night. She rarely grinds her teeth during sleep but occasionally awakens with morning jaw pain. She is frequently bothered by pain during the day but rarely awakened by pain during the night. She frequently wakes up feeling stiff in the morning. She frequently wakes up with sore or achy muscles. She occasionally wakes up with pain in the neck, spine and other joints. She goes to bed at midnight on weekdays and between 1-2 a.m. on the weekends. He can take her anywhere from 5 minutes to 2 hours to fall asleep. She wakes up to 3-6 times per night for unknown reasons and a can take up to an hour for her to fall back asleep. She wakes up between 8:10 a.m. on weekdays and between 8:00 a.m. to 12:00 p.m. on the weekends. She typically gets 8 hours of sleep per night. She will stay in bed up to 30 minutes after waking up in the morning. She currently lives with her partner. She denies consuming any caffeinated beverages within 2 hours of bedtime. She denies engaging in physical exercise before bedtime. She will read before falling asleep. She denies taking naps in the afternoon or the evening. She consumes 1 cup of decaffeinated coffee per day. She denies tobacco, alcohol and recreational drug use. [facility] Past Medical History Medical History Anxiety Depression GERD (gastroesophageal reflux disease) Migraines Sleep apnea Surgical History Surgical History H/O: hysterectomy (~09/14/23) RA Lap vaginal hysterectomy with bilateral salpingectomy. Path benign (for Menorrhagia) Dr Marrufo History of foot surgery left foot calcium injection 2017 History of foot surgery left foot calcaneal osteotomy 2018 History of hysteroscopy (~08/03/23) Attempted endometrial ablation. Menometrorrhagia Family History Family History Mother Hypertension Degenerative disc disease Father Hypertension GERD (gastroesophageal reflux disease) Grandparent Diabetes mellitus Hypertension Cerebrovascular accident COPD (chronic obstructive pulmonary disease) Lung cancer Social H
[2024-02-27 12:54] VITALS: BMI 36.3
== END 2024-02-18 07:30 | disposition home or self-care (01) ==
LOC: ANHCSM 08:28
PROVIDERS: PCP Internal Medicine; Visit Provider Nurse Practitioner
DX: R40.0 Somnolence (principal); R06.83 Snoring; F39 Unspecified mood [affective] disorder
CPT/HCPCS: 95800

== ENCOUNTER 2024-03-06 08:58 | Outpatient (CLI) | payer OTHER, SELFPAY ==
[2024-03-16 20:28] VITALS: BMI 33.0
--- NOTE | 2024-03-16 20:28 | WPDSLEEPSTUD ---
Sleep Study Date of Study: 03/06/24 Ordering Provider: Jana Berrios NP Interpreting Physician: Sherrie Gilbert DO Sleep Study Type: Polysomnogram Height: 1.68 m Weight: 92.986 kg Body Mass Index: 33.0 Neck Circumference (inches): 14 [place]: 7 Reason for Sleep Study The patient had a WatchPAT home sleep test on 02/15/2024 that showed an overall AHI of 0.5 with desaturation down to 91%. Discrepancy between AHI and RDI. Sleep History The patient is a 28-year-old female with ADHD and GERD that had a sleep study ordered by her primary care for evaluation sleep apnea. She occasionally awakens from sleep short of breath. She occasionally awakens at night with heartburn, belching or cough. She frequently snores and it is frequently loud enough that others complain. She frequently has trouble sleeping when she has a cold. She occasionally wakes up gasping for air throughout the night. She occasionally has breathing problems at night observed by herself or others. She occasionally sweats excessively at night. She occasionally has heart palpitations or irregular heartbeats during. She rarely falls asleep during the day but never while driving. She denies cataplexy. She occasionally has trouble at school or work due to sleepiness. She occasionally feels unable to move while waking up or falling asleep. Occasionally experiences vivid dreamlike scenes upon awakening or asleep. She denies feeling afraid of going to sleep. She occasionally has nightmares and occasionally remembers her dreams. She frequently has thoughts racing through her mind. She occasionally feels sad, depressed and anxious. She occasionally has muscular tension. She occasionally notices parts of her body jerk. She rarely kicks during night. She rarely has crawling and aching feelings in legs rarely has leg pain during the night. She rarely grinds her teeth during sleep but occasionally awakens with morning jaw pain. She is frequently bothered by pain during the day but rarely awakened by pain during the night. She frequently wakes up feeling stiff in the morning. She frequently wakes up with sore or achy muscles. She occasionally wakes up with pain in the neck, spine and other joints. She goes to bed at midnight on weekdays and between 1-2 a.m. on the weekends. He can take her anywhere from 5 minutes to 2 hours to fall asleep. She wakes up to 3-6 times per night for unknown reasons and a can take up to an hour for her to fall back asleep. She wakes up between 8:10 a.m. on weekdays and between 8:00 a.m. to 12:00 p.m. on the weekends. She typically gets 8 hours of sleep per night. She will stay in bed up to 30 minutes after waking up in the morning. She currently lives with her partner. She denies consuming any caffeinated beverages within 2 hours of bedtime. She denies engaging in physical exercise before bedtime. She will read before falling asleep. She denies taking naps in the afternoon or the evening. She consumes 1 cup of decaffeinated coffee per day. She denies tobacco, alcohol and recreational drug use. [facility] Past Medical History Medical History Anxiety Depression GERD (gastroesophageal reflux disease) Migraines Sleep apnea Surgical History Surgical History H/O: hysterectomy (~09/14/23) RA Lap vaginal hysterectomy with bilateral salpingectomy. Path benign (for Menorrhagia) Dr Marrufo History of foot surgery left foot calcium injection 2017 History of foot surgery left foot calcaneal osteotomy 2018 History of hysteroscopy (~08/03/23) Attempted endometrial ablation. Menometrorrhagia Family History Family History Mother Hypertension Degenerative disc disease Father Hypertension GERD (gastroesophageal reflux disease) Grandparent Diabetes mellitus Hypertensi
== END 2024-03-07 06:41 | disposition home or self-care (01) ==
PROVIDERS: PCP Internal Medicine; Visit Provider Nurse Practitioner
DX: R40.0 Somnolence (principal); R06.83 Snoring; F39 Unspecified mood [affective] disorder
CPT/HCPCS: 95810

== ENCOUNTER 2025-02-20 09:24 | Outpatient (CLI) | payer OTHER, SELFPAY ==
--- OUTSIDE RECORDS SUMMARY | 2025-02-20 10:00 | XMS_ITS | Clinical Summary ---
Author Organization [facility] Address [address] [place] [address] Care Team Providers Care Sole Stitcher Hand Name Role Phone Unavailable Primary Care Provider Unavailabl e Source Comments [facility],non-owned Affiliates and Associated Physician Practices is amultiple site organization consisting of ambulatory clinics and hospital sitesin [place], [place], [place] and [place]. This disclosure is being madepursuant to the Care Everywhere program and may not contain all information available regarding this patient. Last updated 18.[facility] Allergies No known active allergies Medications * Be aware that medications may not be up to date on this document. Alwaysverify current medications with the patient. Medication Sig Dispensed Refills Start Date End Date Status ESCITALOPRAM OXALATE PO A ctive Social History Tobacco Use Types Packs/Day Years Used Date Smoking Tobacco: Never Smokeless Tobacco: Never Sex and Gender Information Value Date Recorded Sex Assigned at Not on file Gender Identity Not on file Sexual Orientation Not on file Last Filed Vital Signs Vital Sign Reading Time Taken Comments Blood Pressure 126/84 07/05/2020 3:00 PM CDT Pulse 94 07/05/2020 3:00 PM CDT Temperature 37.1 C (98.8 F) 07/05/2020 3:00 PM CDT Respiratory Rate 18 07/05/2020 3:00 PM CDT Oxygen Saturation 98% 07/05/2020 3:00 PM CDT Inhaled Oxygen Concentration - - Weight 108.9 kg (240 lb) 07/05/2020 3:00 PM CDT Height 160 cm (5' 3 ) 07/05/2020 3:00 PM CDT Body Mass Index 42.51 07/05/2020 3:00 PM CDT Plan of Treatment Health Maintenance Due Date Last Done Comments PAP SMEAR 1993 HIV SCREENING 2008 HEPATITIS C SCREENING 06/03/2011 DTAP/TDAP/TD VACCINES (1 - Tdap) 2012 HEPATITIS B VACCINE (1 of 3 - 19+ 3-dose series) 2012 COVID-19 VACCINE (1 - 202-2 5 season) 2024 INFLUENZA VACCINE (#1) 2024 DEPRESSION SCREENING 11/26/2024 ZOSTER VACCINE (1 of 2) 2043 HIB VACCINE Aged Out No longer eligi ble based on patient's age to complete this topic HPV VACCINE Aged Out No longer eligi ble based on patient's age to complete this topic MENINGOCOCCAL (Group B) VACC INE SHARED DECISION-MAKING Aged Out No longer eligibl e based on patient's age to complete this topic MENINGOCOCCAL GROUPS A/C/Y/W VACCINE Aged Out No longer eligible b ased on patient's age to complete this topic PNEUMOCOCCAL VACCINE Aged Out No long er eligible based on patient's age to complete this topic TEMO AGUEROY Personal/Family Spouse [address] [place] [address] NONA AGUERO Personal/Family Spouse [address] [place] [address]
[2025-02-20 12:53] LABS: Basophils Percent Auto 0.5 % (0.2-1.2); Eosinophils Absolute Auto 0.2 K/mm3 (0-0.3); Eosinophils Percent Auto 3.2 % (0-4.4); Hematocrit 39.5 % (37.0-47.0); Hemoglobin 12.4 g/dL (12.0-15.0); Immature Granulocyte Absolute 0.02 K/mm3 (0.00-0.031); Immature Granulocyte Percent A 0.3 % (0-0.5); Lymphocytes Absolute Auto 2.27 K/mm3 (0.9-3.2); Lymphocytes Percent Auto 36.2 % (18.3-44.2); Mean Corpuscular HGB Conc 31.4 g/dl (32-36); Mean Corpuscular Hemoglobin 29.2 pg (26-34); Mean Corpuscular Volume 92.9 fl (80-100); Mean Platelet Volume 11.4 fl (7.4-10.4); Monocytes Absolute Auto 0.7 K/mm3 (0.1-0.6); Monocytes Percent Auto 11.8 % (2.6-8.5); Platelet Count Result 278 k/mm3 (150-375); Red Blood Count 4.25 M/mm3 (4.2-5.4); Red Cell Distribution Width 13.4 % (11.5-14.5); White Blood Count 6.3 K/mm3 (4.5-10.0)
[2025-02-20 12:57] LABS: Alanine Aminotransferase 18 U/L (6-35); Albumin Level 4.5 g/dL (3.5-5.1); Alkaline Phosphatase 75 U/L (38-126); Anion Gap 9 mmol/L (4-12); Aspartate Amino Transferase 52 U/L (14-36); Bilirubin,Total 0.6 mg/dL (0.2-1.3); Blood Urea Nitrogen 11 mg/dL (7-17); Calcium 9.1 mg/dL (8.4-10.2); Carbon Dioxide 27 mmol/L (22-30); Chloride 103 mmol/L (98-107); Cholesterol 168 mg/dL (0-200); Estimated Glomerular Filt Rate > 60; Glucose 89 mg/dL (65-110); HDL Direct 47 mg/dL; Potassium 3.9 mmol/L (3.4-5.0); Sodium 139 mmol/L (137-145); Triglycerides 61 mg/dL (<150)
[2025-02-20 13:10] LABS: LDL Cholesterol Direct 89 mg/dL
[2025-02-20 13:26] LABS: Vitamin D 25 Hydroxy 21.7 ng/mL
== END 2025-02-20 09:25 | disposition home or self-care (01) ==
LOC: ANHGOSHLAB 09:25
PROVIDERS: PCP Internal Medicine; Visit Provider Nurse Practitioner
DX: E55.9 Vitamin D deficiency, unspecified (principal); Z13.29 Encounter for screening for other suspected endocrine disorder; Z13.220 Encounter for screening for lipoid disorders
CPT/HCPCS: 36415; 80053; 80061; 82306; 85025